=== PATIENT | female | born 2000 | race Two or more races ===

== ENCOUNTER 2024-08-09 17:50 | Emergency (ER) | payer MEDICAID, SELFPAY ==
[2024-08-09 17:52] VITALS: BMI 29.2
[2024-08-09 18:08] VITALS: BP 112/76; PULSE 88; RESP 18; TEMP 37.4; O2SAT 98; BMI 28.7
--- NOTE | 2024-08-09 18:35 | XR_ITS ---
Examination: PA lateral chest 2 views Technique upright PA lateral chest 2 views Date and time: August 09, 20242002 hours Comparison June 25, 2014 INDICATIONS: Coughing one week FINDINGS: Normal heart size. Lungs are clear. Osseous structures are intact IMPRESSION: No active disease
--- NOTE | 2024-08-09 18:44 | EDNOTE_ITS ---
ED Extremity Problem RME/HPI General Chief complaint: General Adult/Misc Complain Stated complaint: BUMPS ON LEGS X1 WEEK Time Seen by Provider: 08/09/24 18:34 Arrival date/time: 08/09/24 17:50 23F with no significant PMH presents to ED with 1 week of painful bumps on legs w/o fall/trauma. Patient denies itchiness. Patient has also been coughing. Limitations: no limitations Related Data Home Medications ?Medication ?Instructions ?Recorded ?Confirmed ferrous sulfate 325 mg (65 mg 325 mg PO DAILY 07/20/23 07/22/23 iron) tablet vit no.95-ferrous 1 tab PO DAILY 07/20/2307/11 fumarate 28 mg-folic acid 800 mcg tablet () Allergies Allergy/AdvReac Type Severity Reaction Status Date / Time No Known Allergies Allergy Verified 08/09/24 17:54 Review of Systems Review of Systems Systems Reviewed: All systems reviewed, normal except as documented Constitutional Constitutional: Reports system reviewed and no additional complaints, except as documented, Denies fever(s) and Denies headache(s) ENT Ears, Nose, Mouth, and Throat: Denies disequilibrium and Denies headache(s) Cardiovascular Cardiovascular: Reports system reviewed and no additional complaints, except as documented, Denies chest pain and Denies dyspnea Respiratory Respiratory: Reports system reviewed and no additional complaints, except as documented, Denies cough and Denies dyspnea Gastrointestinal Gastrointestinal: Reports system reviewed and no additional complaints, except as documented, Denies abdominal pain, Denies nausea and Denies vomiting Integumentary/Breasts Skin/Breast: Reports as per HPI, Reports lesions and Reports skin pain Neurologic Neurologic: Reports system reviewed and no additional complaints, except as documented, Denies confusion, Denies disequilibrium and Denies headache(s) Psychiatric Psychiatric: Denies confusion Past Medical History Past Medical History NEUROLOGIC: Negative Neurological Disorders CARDIAC: Negative Cardiac Disorders or Congestive Heart Failure RESPIRATORY: Positive Asthma (last used inh 8 mo ago); Negative Chronic Obstructive Pulmonary Disease (COPD), Bronchitis, Emphysema, Pneumonia, Pulmonary Fibrosis, Cystic Fibrosis, Tuberculosis, Pulmonary Embolism, Pulmonary Edema or Sleep Apnea GASTROINTESTINAL: Negative Gastrointestinal Disorders GENITOURINARY: Negative Genitourinary Disorders or Renal Disease MUSCULOSKELETAL: Negative Musculoskeletal Disorders ENDOCRINE: Negative Diabetes Mellitus Type 1 or Diabetes Mellitus Type 2 HEMATOLOGIC: Negative Blood Disorders or Sickle Cell Disease OTHER HISTORY: Negative Hospitalization, Autoimmune Disease, Down Syndrome, Developmental Delay, Shingles, Falls or Organ Transplant Family History FAMILY HISTORY: Negative Family Psychiatric Problems, Family Respiratory Disorders, Family Cardiac Disorders, Family Gastrointestinal Problems, Family Cancer, Family Surgery or Family Anesthesia Reaction Surgical History SURGICAL: Negative Cardiac Surgery, Endocrine Surgery, Ear Surgery, Abdominal Surgery, Nephrectomy, Joint Replacement, Neurologic Surgery, Mastectomy, Section, Vasectomy or Organ Transplant Social History SMOKING STATUS: Never smoker ED Exam General Limitations: Present no limitations General appearance: Present alert and in no apparent distress Head Head exam: Present atraumatic Eye Eye exam: Present normal appearance, PERRL and EOMI ENT ENT exam: Present normal exam, normal oropharynx and mucous membranes moist Neck Neck exam: Present normal inspection, full ROM and trachea midline Chest Chest inspection: Present normal inspection and symmetric chest wall rise Respiratory Respiratory exam: Present normal lung sounds bilaterally Cardiovascular Cardiovascular exam: Present regular rate, normal rhythm and normal heart sounds Abdominal Exam Abdominal exam: Present soft and normal bowel sounds Extremities Exam Extremities exam: Present normal inspection and full ROM Back Exam Back exam: Present normal inspection and full ROM Neurological Exam Neurological exam: Present alert, oriented X3 and CN II-XII intact Psychiatric Psychiatric exam: Present normal affect and normal mood Skin Skin exam: Present warm, dry, intact, normal color and rash Course Quality Measures none Orders Category Date Time Status XR chest 2V Stat Exams 08/09/24 18:35 Completed CBC Stat Lab 08/09/24 19:05 Completed CMP [Comprehensive Metabolic Panel] Stat Lab 08/09/24 19:05 Completed CRP [C-Reactive Protein] Stat Lab 08/09/24 19:05 Completed Cocci Serology IgM with reflex to IgG [Cocci Serology, Lab 08/09/24 19:05 Received Unk History] Stat ESR [Sed Rate (ESR)] Stat Lab 08/09/24 19:05 Completed INR [Prothrombin Time with INR] Stat Lab 08/09/24 19:05 Completed PTT [Partial Thromboplastin Time] Stat Lab 08/09/24 19:05 Completed Dexamethasone Inj [Decadron Inj] Med 08/09/24 19:37 Discontinued 10 mg PO X1 ONE Vital Signs Vital signs: Vital Signs Temperature 99.3 F 08/09/24 18:08 Pulse Rate 88 08/09/24 18:08 Respiratory Rate 18 08/09/24 18:08 Blood Pressure 112/76 08/09/24 18:08 Pulse Oximetry (%) 98 08/09/24 18:08 Oxygen Delivery Method Room Air 08/09/24 18:08 O2 at 98% on RA and WNLs Extremity Problem MDM Narrative MDM Narrative:: 23F with no significant PMH presents to ED with 1 week of painful bumps on legs w/o fall/trauma. Patient denies itchiness. Patient has also been coughing. Physical exam reveals 5-6 red 2-3 cm size nodules on bilateral lower legs with some redness and tenderness. Normal WOB. Patient is afebrile, calm, and alert. CXR normal. No leukocytosis. Platelets and coags normal. CMP unremarkable. ESR/CRP elevated. Steroids improved cough and rash. 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 Cocci pending at time of DC. Patient data External records reviewed:: [facility] previous records Clinical information provided by:: patient Social determinants that could affect healthcare access:: none Patient has the following chronic illnesses:: none How is presenting disease/condition affected by chronic disease/condition?: no chronic disease Evaluation data The following diagnostics were reviewed and interpreted by me:: lab results and radiology exam(s) Lab and/or radiology exams considered but not ordered:: ordered Interpretation Summary: above Medications / Prescriptions Medications or Prescriptions considered but not ordered:: oprdered Medication administrations:: Medication Administration History Discontinued Medications Dexamethasone Sodium Phosphate (Dexamethasone Sod Phos Inj 10 Mg/Ml Vial) 10 mg PO X1 ONE Stop: 08/09/24 19:38 Last Admin: 08/09/24 20:00 Dose: 10 mg Documented By: OA above Consultations Consultation(s) initiated? (list below): No Diagnosis Extremity Problem Differential Diagnosis: herpes zoster, gout, cellulitis, superficial thrombophlebitis, deep venous thrombosis of upper extremity, lower extremity edema, deep vein thrombosis of lower extremity and other (Valley Fever, PNA, rash, URI) Most likely diagnosis given after review of the tests above:: URI and rash Admission Indicated Admission indicated?: not indicated Admission Request Was there a request for admission?: No Disposition Plan Disposition Plan: Discharge Discharge Attestation Discharge Attestation: The patient and all family members were given an opportunity to ask questions and understood the discharge instructions. Discharge instructions specifically effects, indications for sooner follow up or return to the emergency department, and the expected course of current diagnosis. Patient condition: Stable Discharge Plan Plan Patient Disposition: HOME (Self Care) Discharge Disposition comment: Stable Prescriptions/Referrals Prescriptions/Med Rec: No Action ferrous sulfate 325 mg (65 mg iron) tablet 325 mg PO DAILY Patient Comments: Take 1 tablet by mouth twice a day as directed PNV cmb#95-ferrous fumarate-FA [] 28 mg iron- 800 mcg tablet 1 tab PO DAILY Patient Comments: TAKE 1 TABLET BY MOUTH EVERY DAY FOR 90 DAYS Referrals: Andrey Hobbs MD [Primary Care Provider] - In 1 week Problem List Clinical Impression: Rash, URI (upper respiratory infection) Patient/Caregiver Discharge Instructions Education Materials: ED URI, Viral, No Abx (Adult) Additional Instructions: Please follow-up with PCP within 24-48 hours and return immediately if symptoms worsen. Ibuprofen/Tylenol can be used simultaneously for greater fever/pain control. Benadryl is good for cough, congestion, and sleep. Follow-up with PCP about rash and possible referral to derm/rheum. Print Language: Maori Stand Alone Forms: Patient Portal Info Letter ALEX/OTHER SPORTS COACH OR INSTRUCTOR Supervising Physician ALEX/CALVIN Supervising Physician: Dr. Dodd
[2024-08-09 19:12] LABS: Basophils # (Auto) 0.1 Thou/mm3 (0.0-0.2); Basophils % (Auto) 1 % (0-2.5); Eosinophils # (Auto) 1.6 Thou/mm3 (0.0-0.5); Eosinophils % (Auto) 14 % (0-10); Hematocrit 35.4 % (36.0-46.0); Hemoglobin 12.2 g/dL (12.0-16.0); Immature Granulocytes % (Auto) 0 % (0-0); Immature Granulocytes Auto 0.03 Thou/mm3 (0.00-0.00); Lymphocytes # (Auto) 2.5 Thou/mm3 (1.0-4.8); Lymphocytes % (Auto) 22 % (10-50); Mean Corpuscular HGB Conc 34.5 g/dl (31.0-37.0); Mean Corpuscular Hemoglobin 27.4 pg (25.0-35.0); Mean Corpuscular Volume 80 fL (80-100); Monocytes # (Auto) 0.5 Thou/mm3 (0.0-0.8); Monocytes % (Auto) 5 % (0-12); Neutrophils # (Auto) 6.5 Thou/mm3 (1.8-7.7); Neutrophils % (Auto) 58 % (37-80); Nucleated Red Blood Cell % 0 /100 WBC (0); Platelet Count 463 Thou/mm3 (140-440); Red Blood Count 4.45 Miln/mm3 (4.00-5.20); White Blood Count 11.2 Thou/mm3 (3.6-11.0)
[2024-08-09 19:20] LABS: Sed Rate (ESR) 71 mm/hr (0-20)
[2024-08-09 19:27] LABS: Partial Thromboplastin Time 30.9 Seconds (22.0-36.0); Prothrombin Time 10.9 Seconds (9.0-12.2)
[2024-08-09 19:30] LABS: Alanine Aminotransferase 16 U/L (10-49); Albumin, Serum 4.9 gm/dL (3.5-5.0); Albumin/Globulin Ratio 1.4 (1.2-2.2); Alkaline Phosphatase 86 U/L (46-116); Anion Gap 8 (7-16); Aspartate Amino Transferase 19 U/L (0-34); BUN/Creatinine Ratio 12 Ratio (12-20); Bilirubin,Total 0.2 mg/dL (0.3-1.2); Blood Urea Nitrogen 11 mg/dL (9-23); C-Reactive Protein 2.9 mg/dL (0.0-0.9); Calcium 9.3 mg/dL (8.3-10.6); Calcium (Corrected) 9.3 mg/dL (8.5-10.1); Carbon Dioxide 27.4 mMol/L (20.0-31.0); Chloride 103 mMol/L (98-107); Creatinine (Component) 0.9 mg/dL (0.6-1.3); Estimated Creatinine Clearance 82.1 mL/min (>60); Globulin 3.5 gm/dL (2.3-3.5); Glucose 92 mg/dL (74-106); Osmolality,Calculated 275 (275-295); Potassium 3.7 mMol/L (3.4-5.1); Sodium 138 mMol/L (136-145); Total Protein 8.4 gm/dL (5.7-8.2); eGFR > 60 See Note
[2024-08-09] MEDS: DEXAMETHASONE SOD PHOS INJ 10 MG/ML VIAL PO (20:00)
[2024-08-10 15:40] LABS: Cocci Serology, IgM Positive (Negative)
[2024-08-10 15:41] LABS: Cocid Sro, CF/ID (UCD) NO CHG* See Sep Rpt
== END 2024-08-09 21:47 | disposition home or self-care (01) ==
PROVIDERS: Physician Assistant; Emergency Provider Emergency Medicine; PCP Family Medicine
DX: J06.9 Acute upper respiratory infection, unspecified (principal); R21 Rash and other nonspecific skin eruption
CPT/HCPCS: 36415; 71046; 80053; 85025; 85610; 85652; 85730; 86140; 86635; 99283; J1100